=== PATIENT | female | born 1960 | race Caucasian/White ===

== ENCOUNTER 2020-07-04 10:00 | Inpatient (IN) | payer OTHER ==
[~2020-07-04] VITALS: Ht 172.7 cm; Wt 123.4 kg
[~2020-07-04 10:00] MED LIST: PROTONIX40 MG PO
--- NOTE | 2020-07-04 10:26 | NUR ---
RECEIVED VIA WHEELCHAIR TO ROOM WITH MASK ON. DRY COUGH. PLACED IN COVID ISOLATION. GLASSES ON AT BEDISDE. WILL ADMIT AND CALL FOR ORDERS.
[2020-07-04] MEDS ORDERED: PLAVIX75 MG PO (10:39)
[2020-07-04] MEDS ORDERED: LIPITOR40 MG PO (10:40)
[2020-07-04] MEDS ORDERED: BAYER CHEWABLE81 MG PO (10:40)
[2020-07-04 10:50] VITALS: BP 151/80; BMI 41.4
--- NOTE | 2020-07-04 11:21 | NUR ---
IV X 3 STICKS TO LEFT HAND WITH 20 G PER TANMAY ONOFRE RN.
--- NOTE | 2020-07-04 11:35 | NUR ---
PATIENT TO PLACE HERSELF ON 2 LITER NC, O2 SAT IS 96%. STATES TO HAVING SLIGHT HEADACHE. STILL AWAITING FURTHER ADMIT ORDERS.
--- NOTE | 2020-07-04 15:55 | NUR ---
ASSUMED CARE OF PT. TYLENOL GIVEN FOR GENERAL ACHES AND PAINS. ANTIBIOTICS INITIATED. URINE AND BLOOD COLLECTED.
[2020-07-04 15:58] LABS: BASOPHILS 0.1 % (0-2); EOSINOPHILS 0 % (0-7); HEMATOCRIT 41.6 % (36.0-48.0); HEMOGLOBIN 13.4 g/dL (12-16); IMMATURE GRANULOCYTES 0.1 % (0-5); LYMPHOCYTES 16.5 % (15-50); MCH 27.8 pg (26.0-34.0); MCHC 32.2 g/dL (31.0-37.0); MCV 86.3 fL (80.0-100.0); MEAN PLATELET VOLUME 10.4 fL (7.4-10.4); MONOCYTES 8.5 % (2-11); NEUTROPHILS 74.8 % (40-80); PLATELET COUNT 215 10x3/uL (130-400); RBC 4.82 10x6/uL (4.00-5.40); RDW 14.1 % (11.5-14.5); WBC 6.7 10x3/uL (4.8-10.8)
[2020-07-04 16:40] LABS: ALBUMIN 3.6 g/dL (3.4-5.0); ANION GAP 16.2 mmol/L (8-16); BILIRUBIN - TOTAL 0.26 mg/dL (0.2-1.3); C-REACTIVE PROTEIN 0.8 mg/dL (0.0-0.9); CALCIUM 8.3 mg/dL (8.5-10.1); CARBON DIOXIDE 21.4 mmol/L (21.0-32.0); CREATININE - SERUM 1.1 mg/dL (0.6-1.3); POTASSIUM - SERUM 3.6 mmol/L (3.5-5.1); PROTEIN - SERUM 7.1 g/dL (6.4-8.2)
[2020-07-04 18:02] LABS: ERYTHROCYTE SEDIMENTATION RATE 15 mm/hr (0-30)
[2020-07-04 18:10] LABS: BILIRUBIN NEGATIVE (NEGATIVE); KETONE NEGATIVE (NEGATIVE); NITRITE NEGATIVE (NEGATIVE); UROBILINOGEN NORMAL mg/dL (< 2)
--- NOTE | 2020-07-04 19:30 | NUR ---
PT IN BED, AAO X 3, RESP EVEN AND UNLABORED, NO DISTRESS NOTED, PT C/O FEELING HOT AFTER ANTIBIOTIC GIVEN, CL IN REACH, SR UP X 2.
[2020-07-04 20:00] VITALS: BP 142/75
[2020-07-05] VITALS: BP 124/49
--- NOTE | 2020-07-05 03:08 | NUR ---
I have reviewed this patient and I concur with the Shift Assessment completed by the Licensed Practical Nurse today this shift.
[2020-07-05 04:00] VITALS: BP 120/58
[2020-07-05 04:53] LABS: BASOPHILS 0.2 % (0-2); EOSINOPHILS 0 % (0-7); HEMATOCRIT 40.7 % (36.0-48.0); HEMOGLOBIN 13.1 g/dL (12-16); IMMATURE GRANULOCYTES 0.2 % (0-5); MCH 28.1 pg (26.0-34.0); MCHC 32.2 g/dL (31.0-37.0); MCV 87.2 fL (80.0-100.0); MEAN PLATELET VOLUME 10.6 fL (7.4-10.4); MONOCYTES 7.7 % (2-11); NEUTROPHILS 80.9 % (40-80); PLATELET COUNT 194 10x3/uL (130-400); RBC 4.67 10x6/uL (4.00-5.40); RDW 14.6 % (11.5-14.5); WBC 6.1 10x3/uL (4.8-10.8)
[2020-07-05 05:19] LABS: ALBUMIN 3.4 g/dL (3.4-5.0); ANION GAP 13.3 mmol/L (8-16); BILIRUBIN - TOTAL 0.25 mg/dL (0.2-1.3); CALCIUM 8.4 mg/dL (8.5-10.1); CARBON DIOXIDE 25.4 mmol/L (21.0-32.0); CREATININE - SERUM 1.1 mg/dL (0.6-1.3); POTASSIUM - SERUM 3.7 mmol/L (3.5-5.1); PROTEIN - SERUM 7.2 g/dL (6.4-8.2)
[2020-07-05 08:00] VITALS: BP 149/60
[2020-07-05 08:10] VITALS: BP 149/60
[2020-07-05 13:03] VITALS: Ht 172.7 cm; Wt 123.4 kg
--- NOTE | 2020-07-05 13:17 | NUR ---
COVID CONVALESCENT PLASMA STARTED.
--- NOTE | 2020-07-05 16:10 | MORECARE ---
CASE MANAGEMENT DISCHARGE SUMMARY PATIENT: LEVON FELICIANO UNIT: [id number] ADM DATE: 07/04/20 AGE: 60 : 60 SEX: F ROOM/BED: D.9854 AUTHOR: CRISSY MONROY PHYSICIAN: REFERRING PHYSICIAN: LUDA BUENO DO DATE OF SERVICE: 07/05/20 Discharge Plan Patient Name: LEVON FELICIANO Facility: [facility]:[place] : 1960 Planned Disposition: Home Anticipated Discharge Date: Discharge Date: Expected LOS: Initial Reviewer: [email or web address] Initial Review Date: 07/04/2020 Generated: 07/05/20 5:09 pm Patient Name: LEVON FELICIANO Page [id number] at 1610 All edits/amendments must be made on the electronic document DICTATION DATE: 07/05/201608 MARINE CHRONOMETER ASSEMBLER: JANE 07/05/201608 RPT#: [id number] DC DATE: STATUS: ADM IN [facility] [address] [place] [address] END OF REPORT
--- NOTE | 2020-07-05 16:33 | MORECARE ---
CASE MANAGEMENT DISCHARGE SUMMARY PATIENT: LEVON FELICIANO UNIT: [id number] ADM DATE: 07/04/20 AGE: 60 : 60 SEX: F ROOM/BED: D.7841 AUTHOR: PORFIRIODOC PHYSICIAN: REFERRING PHYSICIAN: LUDA BUENO DO DATE OF SERVICE: 07/05/20 Discharge Plan Patient Name: LEVON FELICIANO Facility: [facility]:[place] : 1960 Planned Disposition: Home Anticipated Discharge Date: Discharge Date: Expected LOS: Initial Reviewer: [email or web address] Initial Review Date: 07/04/2020 Generated: 07/05/20 5:32 pm DCP- Discharge Planning Updated by [email or web address]: Domenica Mason on 07/05/20 3:[address] Patient Name: LEVON FELICIANO Admission Status: Elective Accout number: [id number] Admission Date: 07-04-2020 : 1960 Admission Diagnosis:COVID-19 Attending: LUDA BUENO Current LOS: 1 Anticipated DC Date: Planned Disposition: Home Primary Insurance: [employer] POS Discharge Planning Comments: CM met with patient to complete initial dc planning assessment. CM educated patient on the CM role and verbal consent given by patient to complete assessment. CM verified patient's address, phone number, and emergency contact phone numbers. Patient lives at home with her . At discharge patient plans to return home and feels this is a safe discharge. CM discussed availability of home health, rehab services, and medical equipment. Patient denied known discharge needs at this time. The patient is on oxygen and may require a walk test for home and portable oxygen. RAJENDRA verbalized for [facility] if home oxygen is needed. Transportation provider at discharge will be her . CM will continue to follow and will assist as needed with dc plans/needs. Accounting Advisory Services Manager: Domenica Mason DCPIA - Discharge Planning Initial Assessment Updated by [email or web address]: Domenica Mason on 07/05/20 4:26 pm * Is the patient Alert and Oriented? Yes * How many steps to enter\exit or inside your home? 0/0 * PCP XIMENA * Pharmacy [facility] * Preadmission Environment Home with Family * ADLs Independent * Equipment None * Verbal permission to speak to the caregivers and representatives has been obtained from the patient. N/A * Community resources currently utilized None * Additional services required to return to the preadmission environment? Yes * Can the patient safely return to the preadmission environment? Yes * Has this patient been hospitalized within the prior 30 days at any hospital? No Coverage Notice Reviewer: [id number] Alexandria Mason Notice Issued Date-Time: 07/05/2020 13:00 Notice Type: Patient Choice Letter Notice Delivered To: Patient Relationship to Patient: Self Dining Room Attendant Cafeteria Name: Delivery Method: PHONE - Phone Nicole Days: Prior Verbal Notification: Yes Recipient Understood Notice: Yes Recipient Signature: Med Rec Note Co-signed by Attending: Coverage Notice Comment: rajendra verbalized for judith DUNN export: 07/05/20 3:10 p Patient Name: LEVON FELICIANO Page [phone] at 1633 All edits/amendments must be made on the electronic document DICTATION DATE: 07/05/20 163 FIELD SERVICE MANAGER: JANE 07/05/20 163 RPT#: [id number] DC DATE: STATUS: ADM IN [facility] [address] [place] [address] END OF REPORT
--- NOTE | 2020-07-05 19:30 | NUR ---
PT IN BED, AAO X 3, RESP EVEN AND UNLABOERD, NO DISTRESS NOTED, CL IN REACH, SR UP X 2.
[2020-07-05 20:00] VITALS: BP 118/52
[2020-07-06] VITALS: BP 130/60
[2020-07-06 04:00] VITALS: BP 113/60
[2020-07-06 04:24] LABS: BASOPHILS 0.3 % (0-2); EOSINOPHILS 0 % (0-7); HEMATOCRIT 38.8 % (36.0-48.0); HEMOGLOBIN 12.4 g/dL (12-16); IMMATURE GRANULOCYTES 0.3 % (0-5); LYMPHOCYTES 18.1 % (15-50); MCH 27.9 pg (26.0-34.0); MCV 87.2 fL (80.0-100.0); MEAN PLATELET VOLUME 10.7 fL (7.4-10.4); NEUTROPHILS 67.3 % (40-80); PLATELET COUNT 188 10x3/uL (130-400); RBC 4.45 10x6/uL (4.00-5.40); RDW 14.4 % (11.5-14.5)
[2020-07-06 04:33] LABS: WBC 3.9 10x3/uL (4.8-10.8)
[2020-07-06 04:52] LABS: ALBUMIN 3.1 g/dL (3.4-5.0); ANION GAP 10.9 mmol/L (8-16); BILIRUBIN - TOTAL 0.3 mg/dL (0.2-1.3); CALCIUM 8.4 mg/dL (8.5-10.1); CREATININE - SERUM 0.9 mg/dL (0.6-1.3); POTASSIUM - SERUM 3.9 mmol/L (3.5-5.1); PROTEIN - SERUM 6.8 g/dL (6.4-8.2)
--- NOTE | 2020-07-06 07:37 | NUR ---
PT RECEIVED AWAKE AND ALERT IN BED. ASKING FOR TESSELON STEPHANE. OXYGEN UP TO 5 LITERS.
[2020-07-06 08:52] VITALS: BP 121/58
--- NOTE | 2020-07-06 19:30 | NUR ---
PT SETTING UP IN BED, AAO X 3, RESP EVEN AND UNLABORED, NO DISTRESS NOTED, CL IN REACH, SR UP X 2.
[2020-07-06 21:19] VITALS: BP 133/67
--- NOTE | 2020-07-07 03:14 | NUR ---
I have reviewed this patient and I concur with the Shift Assessment completed by the Licensed Practical Nurse today this shift.
[2020-07-07 05:30] LABS: BASOPHILS 0.1 % (0-2); EOSINOPHILS 0.1 % (0-7); HEMATOCRIT 40.2 % (36.0-48.0); HEMOGLOBIN 12.8 g/dL (12-16); IMMATURE GRANULOCYTES 0.4 % (0-5); MCH 27.9 pg (26.0-34.0); MCHC 31.8 g/dL (31.0-37.0); MCV 87.6 fL (80.0-100.0); MEAN PLATELET VOLUME 10.3 fL (7.4-10.4); MONOCYTES 14.2 % (2-11); NEUTROPHILS 70.2 % (40-80); PLATELET COUNT 196 10x3/uL (130-400); RBC 4.59 10x6/uL (4.00-5.40); RDW 14.5 % (11.5-14.5)
[2020-07-07 05:38] VITALS: BP 164/76
[2020-07-07 05:39] LABS: WBC 7.1 10x3/uL (4.8-10.8)
[2020-07-07 05:46] LABS: ANION GAP 8.8 mmol/L (8-16); BILIRUBIN - TOTAL 0.26 mg/dL (0.2-1.3); CALCIUM 8.3 mg/dL (8.5-10.1); CREATININE - SERUM 0.9 mg/dL (0.6-1.3); POTASSIUM - SERUM 3.8 mmol/L (3.5-5.1); PROTEIN - SERUM 6.8 g/dL (6.4-8.2)
--- NOTE | 2020-07-07 07:00 | NUR ---
RECEIVED REPORT. ASSUMED CARE OF PATIENT. PATIENT REMAINS IN DROPLET ISOLATION FOR COVID19.
[2020-07-07 08:08] VITALS: BP 143/70
--- NOTE | 2020-07-07 09:45 | NUR ---
MEDICATED FOR GENERALIZED PAIN AT THIS TIME. NO DISTRESS.
[2020-07-07 11:15] VITALS: BP 122/46
[2020-07-07 15:56] VITALS: BP 143/74
--- NOTE | 2020-07-07 18:10 | NUR ---
CRISS FELICIANO, PATIENTS SON, CALLED TO CHECK ON PATIENT AND UPDATE WAS GIVEN DUE TO HE WAS ABLE TO PROVIDE SECURITY CODE FOR PATIENT.
--- NOTE | 2020-07-07 18:27 | NUR ---
DR. BRAVO EXPRESSES CONCERN AND WANTS HOURLY CHECK INS WITH PT D/T LETHARGY AND UPPED O2 USE.
[2020-07-07 20:18] VITALS: BP 106/52
--- NOTE | 2020-07-08 04:40 | NUR ---
PT REMAINS ON 8L HF. O2 SATS AT 92-94% NO S/S OF DISTRESS OBSERVED. FREQUENT ROUNDS. NO C/O OR CONCERNS. WILL CPOC.
[2020-07-08 04:45] VITALS: BP 141/72
[2020-07-08 06:52] LABS: BASOPHILS 0 % (0-2); EOSINOPHILS 0 % (0-7); HEMATOCRIT 39.7 % (36.0-48.0); HEMOGLOBIN 12.6 g/dL (12-16); IMMATURE GRANULOCYTES 0.5 % (0-5); MCHC 31.7 g/dL (31.0-37.0); MCV 88.2 fL (80.0-100.0); MEAN PLATELET VOLUME 10.5 fL (7.4-10.4); MONOCYTES 10.4 % (2-11); NEUTROPHILS 73.1 % (40-80); PLATELET COUNT 202 10x3/uL (130-400); RDW 14.6 % (11.5-14.5); WBC 6.3 10x3/uL (4.8-10.8)
--- NOTE | 2020-07-08 07:20 | NUR ---
RECIEVE REPORT. ALERT AND ORIENTED X4. ABGs IMPROVED. VITALS STABLE. DENIES ANY NEEDS. CONTINUE PLAN OF CARE AND SAFETY PRECAUTIONS.
[2020-07-08 07:27] LABS: ALBUMIN 2.9 g/dL (3.4-5.0); ANION GAP 11.8 mmol/L (8-16); BILIRUBIN - TOTAL 0.33 mg/dL (0.2-1.3); CALCIUM 8.5 mg/dL (8.5-10.1); CREATININE - SERUM 0.9 mg/dL (0.6-1.3); POTASSIUM - SERUM 3.8 mmol/L (3.5-5.1); PROTEIN - SERUM 6.6 g/dL (6.4-8.2)
[2020-07-08 09:06] VITALS: BP 136/72
[2020-07-08 12:07] VITALS: BP 124/54
--- NOTE | 2020-07-08 16:37 | NUR ---
ALERT AND ORIENTED X4. SITTING UP IN BED WATCHING TV. DENIES ANY NEEDS. NO BIPAP REQUIRED AT THIS TIME. O2 @ 8L HFNC O2 SAT 95%. CONTINUE PLAN OF CARE AND SAFETY PRECAUTIONS.
[2020-07-08 17:10] VITALS: BP 120/63
[2020-07-08 21:30] VITALS: BP 124/57
[2020-07-09 01:30] VITALS: BP 148/56
[2020-07-09 04:35] VITALS: BP 186/90
--- NOTE | 2020-07-09 05:52 | NUR ---
PT VOICES NO C/O OR CONCERNS DURING THE NIGHT, SPO2 STAYED ABOVE 95% DURING THE NIGHT. PT DID ASK MULTIPLE TIMES REGARDING HER XANAX ORDER, EDUCATED ITS Q12H PRN. NO DISTRESS. WILL CPOC.
--- NOTE | 2020-07-09 07:20 | NUR ---
RECIEVE REPORT. ALERT AND ORIENTED X4. SITTING UP IN BED. O2 @ 8L HFNC SAT-97%. DENIES ANY NEEDS. CONTINUE PLAN OF CARE AND SAFETY PRECAUTIONS.
[2020-07-09 08:06] VITALS: BP 157/74
[2020-07-09 11:49] VITALS: BP 145/74
[2020-07-09 13:13] LABS: BASOPHILS 0 % (0-2); EOSINOPHILS 0 % (0-7); HEMOGLOBIN 12.4 g/dL (12-16); IMMATURE GRANULOCYTES 0.8 % (0-5); LYMPHOCYTES 7.9 % (15-50); MCH 28.1 pg (26.0-34.0); MCHC 31.8 g/dL (31.0-37.0); MCV 88.2 fL (80.0-100.0); MEAN PLATELET VOLUME 10.3 fL (7.4-10.4); MONOCYTES 9.4 % (2-11); NEUTROPHILS 81.9 % (40-80); PLATELET COUNT 203 10x3/uL (130-400); RBC 4.42 10x6/uL (4.00-5.40); RDW 14.4 % (11.5-14.5); WBC 8.9 10x3/uL (4.8-10.8)
[2020-07-09 13:20] LABS: ALBUMIN 2.9 g/dL (3.4-5.0); ALKALINE PHOSPHATASE 69 U/L (30-120); ALT (SGPT) 30 U/L (10-68); BILIRUBIN - TOTAL 0.32 mg/dL (0.2-1.3); CALCIUM 8.2 mg/dL (8.5-10.1); CARBON DIOXIDE 26.9 mmol/L (21.0-32.0); CHLORIDE - SERUM 105 mmol/L (98-107); CREATININE - SERUM 0.8 mg/dL (0.6-1.3); POTASSIUM - SERUM 4.2 mmol/L (3.5-5.1); PROTEIN - SERUM 5.8 g/dL (6.4-8.2); SODIUM 138 mmol/L (136-145); UREA NITROGEN 19 mg/dL (7-18); eGFR NON AFRICAN AMERICAN 77 mL/min (90-120)
[2020-07-09 13:21] LABS: CALC OSMOLALITY 283 mosm/kg (275-300); GLUCOSE 205 mg/dL (74-106)
--- NOTE | 2020-07-09 14:01 | NUR ---
Nutrition Follow-up: Diet: Cardiac PO intake: 15-20% x last 3 meals Last BM: 07/06/20. Wt: 272# (07/05/20) Meds noted: vit d, vit c, pepcid, zinc sulfate. Labs reviewed. Recommend continue current diet. Will add Ensure TID with meals. RD following.
[2020-07-09 15:32] VITALS: BP 148/67
--- NOTE | 2020-07-09 16:26 | NUR ---
ALERT AND ORIENTED X4. SITTING UP IN BED USING INSENTIVE SPIROMETER. O2 @ 7L HFNC SAT-96%. REPORTS NOSE DRY AND SCANT BLEEDING. OXYGEN HUMIDIFIED. DENIES ANY OTHER NEEDS. CONTINUE PLAN OF CARE AND SAFETY PRECAUTIONS.
--- NOTE | 2020-07-09 19:00 | NUR ---
REPORT RECEIVED, WILL CONTINUE POC. PATIENT IS AAOX4, LYING IN BED. NO S/S OF DISTRESS OBSERVED, RR EVEN AND UNLABORED ON 7L HFNC. PIV TO RT FA, SL. PATIENT DENIES NEEDS AT THIS TIME. CL IN REACH, BED LOCKED AND LOWERED. COVID 19 PRECAUTIONS MAINTAINED. WILL CTM.
--- NOTE | 2020-07-09 19:50 | NUR ---
PATIENT CALLED DESK TO ASK IF WE GAVE HER ANYTHING WHILE SHE WAS ASLEEP. INFORMED PATIENT THAT MEDS WILL NOT BE ADMINISTERED UNLESS PATIENT IS ALERT AND AWARE OF THE MEDICATIONS BEING GIVEN. PATIENT STATE'S, "I'M ON FIRE". INFORMED PATIENT THAT THIS NURSE WOULD BRING IN ALL OF HER MEDS IN JUST A FEW MINUTES. PATIENT STATES UNDERSTANDING.
[2020-07-09 21:35] VITALS: BP 167/82
[2020-07-10 03:19] VITALS: BP 149/63
[2020-07-10 05:53] LABS: BASOPHILS 0 % (0-2); EOSINOPHILS 0 % (0-7); HEMOGLOBIN 13.5 g/dL (12-16); IMMATURE GRANULOCYTES 1.3 % (0-5); LYMPHOCYTES 11.6 % (15-50); MCH 27.9 pg (26.0-34.0); MCHC 32.1 g/dL (31.0-37.0); MCV 86.8 fL (80.0-100.0); MEAN PLATELET VOLUME 10.4 fL (7.4-10.4); MONOCYTES 8.6 % (2-11); NEUTROPHILS 78.5 % (40-80); PLATELET COUNT 223 10x3/uL (130-400); RBC 4.84 10x6/uL (4.00-5.40); RDW 13.8 % (11.5-14.5); WBC 7.8 10x3/uL (4.8-10.8)
[2020-07-10 06:23] LABS: ALBUMIN 2.9 g/dL (3.4-5.0); ALKALINE PHOSPHATASE 70 U/L (30-120); ALT (SGPT) 27 U/L (10-68); BILIRUBIN - TOTAL 0.38 mg/dL (0.2-1.3); CALCIUM 8.4 mg/dL (8.5-10.1); CARBON DIOXIDE 28.6 mmol/L (21.0-32.0); CHLORIDE - SERUM 104 mmol/L (98-107); CREATININE - SERUM 0.8 mg/dL (0.6-1.3); POTASSIUM - SERUM 4.2 mmol/L (3.5-5.1); PROTEIN - SERUM 6.7 g/dL (6.4-8.2); SODIUM 139 mmol/L (136-145); eGFR NON AFRICAN AMERICAN 77 mL/min (90-120)
[2020-07-10 06:24] LABS: CALC OSMOLALITY 280 mosm/kg (275-300); GLUCOSE 138 mg/dL (74-106); UREA NITROGEN 14 mg/dL (7-18)
--- NOTE | 2020-07-10 07:20 | NUR ---
RECIEVE REPORT. ALERT AND ORIENTED X4. SITTING UP IN BED. O2 @ 7L HF SAT-97%. HR-50. INITIATE CRIMINAL JUSTICE FACULTY DUE TO DECREASE HR. SINUS PETER ON TELEMETRY. DENIES ANY NEEDS AT THIS TIME. CONTINUE PLAN OF CARE AND SAFETY PRECAUTIONS.
[2020-07-10 08:05] VITALS: BP 155/80
[2020-07-10 11:02] VITALS: BP 131/64
--- NOTE | 2020-07-10 14:53 | NUR ---
ALERT AND ORIENTED X4. SITTING UP IN BED. REFUSE BED CHANGE AND SPONGE BATH. O2 @ 5.5L HF O2 SAT 95%. SINUS RYTHM 70 ON TELEMETRY. DENIES ANY OTHER NEEDS. CONTINUE PLAN OF CARE AND SAFETY PRECAUTIONS.
[2020-07-10 16:03] VITALS: BP 144/59
[2020-07-10 20:00] VITALS: BP 144/51
[2020-07-11] VITALS: BP 145/51
[2020-07-11 04:00] VITALS: BP 165/68
--- NOTE | 2020-07-11 05:21 | NUR ---
PT A/O X4 SITTING UP IN BED O2-98% VITALS STABLE. PT DENIES ANY PAIN OR FURTHER NEEDS AT THIS TIME. BED LOW CALL LIGHT WITHIN REACH. WILL CONTINUE TO MONITOR.
[2020-07-11 05:42] LABS: BASOPHILS 0 % (0-2); EOSINOPHILS 0 % (0-7); HEMATOCRIT 42.2 % (36.0-48.0); HEMOGLOBIN 13.5 g/dL (12-16); LYMPHOCYTES 9.6 % (15-50); MCH 27.5 pg (26.0-34.0); MCV 85.9 fL (80.0-100.0); MEAN PLATELET VOLUME 10.7 fL (7.4-10.4); MONOCYTES 12.9 % (2-11); NEUTROPHILS 75.5 % (40-80); PLATELET COUNT 254 10x3/uL (130-400); RBC 4.91 10x6/uL (4.00-5.40); RDW 13.5 % (11.5-14.5); WBC 9.2 10x3/uL (4.8-10.8)
[2020-07-11 06:08] LABS: ALBUMIN 2.9 g/dL (3.4-5.0); ALKALINE PHOSPHATASE 69 U/L (30-120); ALT (SGPT) 30 U/L (10-68); BILIRUBIN - TOTAL 0.41 mg/dL (0.2-1.3); CALC OSMOLALITY 275 mosm/kg (275-300); CALCIUM 8.4 mg/dL (8.5-10.1); CARBON DIOXIDE 27.8 mmol/L (21.0-32.0); CHLORIDE - SERUM 103 mmol/L (98-107); CREATININE - SERUM 0.8 mg/dL (0.6-1.3); GLUCOSE 113 mg/dL (74-106); POTASSIUM - SERUM 4.2 mmol/L (3.5-5.1); PROTEIN - SERUM 6.7 g/dL (6.4-8.2); SODIUM 137 mmol/L (136-145); UREA NITROGEN 16 mg/dL (7-18); eGFR NON AFRICAN AMERICAN 77 mL/min (90-120)
[2020-07-11 12:57] VITALS: BP 148/83
[2020-07-11 20:00] VITALS: BP 143/72
--- NOTE | 2020-07-11 20:45 | NUR ---
PT SITTING UP IN CHAIR.PT IS ALERT AND ORIENTED.C/O HEADACHE.RATES PAIN A 4 ON PAIN SCALE.02 IN USE.RESP ARE EVEN ET UNLABORED.HEARTRATE IS REGULAR.IV WITHOUT S/S OF INFILTRATION.PT WITH GOOD APPETITE.CALLBELL IN REACH.SIDERAILS UP X2.NO DISTRESS NOTED.
[2020-07-12 04:00] VITALS: BP 178/70
[2020-07-12 07:45] LABS: BASOPHILS 0.1 % (0-2); EOSINOPHILS 0.1 % (0-7); HEMATOCRIT 42.2 % (36.0-48.0); HEMOGLOBIN 13.9 g/dL (12-16); IMMATURE GRANULOCYTES 2.8 % (0-5); MCH 28.2 pg (26.0-34.0); MCHC 32.9 g/dL (31.0-37.0); MCV 85.6 fL (80.0-100.0); MEAN PLATELET VOLUME 10.9 fL (7.4-10.4); MONOCYTES 11.1 % (2-11); NEUTROPHILS 72.9 % (40-80); PLATELET COUNT 247 10x3/uL (130-400); RBC 4.93 10x6/uL (4.00-5.40); RDW 13.5 % (11.5-14.5); WBC 10.9 10x3/uL (4.8-10.8)
[2020-07-12 07:57] LABS: ALBUMIN 2.9 g/dL (3.4-5.0); ALKALINE PHOSPHATASE 65 U/L (30-120); ALT (SGPT) 28 U/L (10-68); BILIRUBIN - TOTAL 0.47 mg/dL (0.2-1.3); CALC OSMOLALITY 275 mosm/kg (275-300); CALCIUM 8.4 mg/dL (8.5-10.1); CARBON DIOXIDE 27.3 mmol/L (21.0-32.0); CHLORIDE - SERUM 104 mmol/L (98-107); CREATININE - SERUM 0.8 mg/dL (0.6-1.3); GLUCOSE 88 mg/dL (74-106); POTASSIUM - SERUM 4.1 mmol/L (3.5-5.1); PROTEIN - SERUM 6.5 g/dL (6.4-8.2); SODIUM 137 mmol/L (136-145); UREA NITROGEN 20 mg/dL (7-18); eGFR NON AFRICAN AMERICAN 77 mL/min (90-120)
[2020-07-12 07:58] VITALS: BP 121/74
[2020-07-12 12:22] VITALS: BP 122/72
--- NOTE | 2020-07-12 14:17 | NUR ---
Nutrition Follow-up: Pt in droplet isolation; covid-19+. Nursing reports good appetite. Noted possible d/c tomorrow. Diet: Cardiac, Ensure TID Wt: 272# (07/05) Labs noted: Ca 8.4, Alb 2.9 Meds noted: Pepcid, zinc sulfate, vit D, vit C, electrolyte protocol -Change Ensure to PRN. -RD following.
[2020-07-12 16:04] VITALS: BP 139/70
--- NOTE | 2020-07-12 19:02 | MORECARE ---
CASE MANAGEMENT DISCHARGE SUMMARY PATIENT: LEVON FELICIANO UNIT: [id number] ADM DATE: 07/04/20 AGE: 60 : 60 SEX: F ROOM/BED: D.7530 AUTHOR: PORFIRIODOC PHYSICIAN: REFERRING PHYSICIAN: LUDA BUENO DO DATE OF SERVICE: 07/12/20 Discharge Plan Patient Name: LEVON FELICIANO Facility: [facility]:[place] : 1960 Planned Disposition: Home Anticipated Discharge Date: Discharge Date: Expected LOS: Initial Reviewer: [email or web address] Initial Review Date: 07/04/2020 Generated: 07/12/20 8:01 pm DCP- Discharge Planning Updated by [email or web address]: Domenica Mason on 07/05/20 3:[address] Patient Name: LEVON FELICIANO Admission Status: Elective Accout number: [id number] Admission Date: 07-04-2020 : 1960 Admission Diagnosis:COVID-19 Attending: LUDA BUENO Current LOS: 1 Anticipated DC Date: Planned Disposition: Home Primary Insurance: [employer] POS Discharge Planning Comments: CM met with patient to complete initial dc planning assessment. CM educated patient on the CM role and verbal consent given by patient to complete assessment. CM verified patient's address, phone number, and emergency contact phone numbers. Patient lives at home with her . At discharge patient plans to return home and feels this is a safe discharge. CM discussed availability of home health, rehab services, and medical equipment. Patient denied known discharge needs at this time. The patient is on oxygen and may require a walk test for home and portable oxygen. RAJENDRA verbalized for [facility] if home oxygen is needed. Transportation provider at discharge will be her . CM will continue to follow and will assist as needed with dc plans/needs. Cabin Agent: Domenica Mason DCPIA - Discharge Planning Initial Assessment Updated by [email or web address]: Domenica Mason on 07/05/20 4:26 pm * Is the patient Alert and Oriented? Yes * How many steps to enter\exit or inside your home? 0/0 * PCP XIMENA * Pharmacy [facility] * Preadmission Environment Home with Family * ADLs Independent * Equipment None * Verbal permission to speak to the caregivers and representatives has been obtained from the patient. N/A * Community resources currently utilized None * Additional services required to return to the preadmission environment? Yes * Can the patient safely return to the preadmission environment? Yes * Has this patient been hospitalized within the prior 30 days at any hospital? No External Providers External Provider: Timothy Next Contact Date: Service Request Date: Service Type: Resolution: Reviewer: Comments: Coverage Notice Reviewer: [email or web address] Alexandria Mason Notice Issued Date-Time: 07/05/2020 13:00 Notice Type: Patient Choice Letter Notice Delivered To: Patient Relationship to Patient: Self Proposal Development Manager Name: Delivery Method: PHONE - Phone Nicole Days: Prior Verbal Notification: Yes Recipient Understood Notice: Yes Recipient Signature: Med Rec Note Co-signed by Attending: Coverage Notice Comment: rajendra verbalized for judith Last DP export: 07/05/20 3:33 p Patient Name: LEVON FELICIANO Page [id number] at 1902 All edits/amendments must be made on the electronic document DICTATION DATE: 07/12/201901 IRONER: JANE 07/12/201901 RPT#: [id number] DC DATE: STATUS: ADM IN [facility] [address] [place] [address] END OF REPORT
--- NOTE | 2020-07-12 19:30 | NUR ---
pt laying in bed alert and oriented.pt has 02 in use. resp are even et unlabored.heartrate is regular.pt with a c/o pain to head. rates pain as a 5 on pain scale.pt has iv to right forearm without s/s of infiltration.pt with good appetite.callbell in reach.siderails upx2.no distress noted.
[2020-07-12 20:00] VITALS: BP 118/52
--- NOTE | 2020-07-12 20:30 | NUR ---
PT GIVEN PM MEDS.PT GIVEN TYLENOL AND XANAX REQUESTED.CALLBELL IN REACH. SIDERAILS UP X2.NO DISTRESS NOTED.
--- NOTE | 2020-07-13 01:24 | NUR ---
PT LAYING IN BED RESTING QUIETLY WITH EYES CLOSED.RESP ARE UNLABORED. CALLBELL IN REACH. SIDERAILS UP X2.NO DISTRESS NOTED.
[2020-07-13 04:00] VITALS: BP 117/58
--- NOTE | 2020-07-13 05:00 | NUR ---
PT STUCK IN LEFT HAND WITH A 23 GAUGE BUTTERFLY TO OBTAIN BLOOD FOR LAB.PT WITH NO COMPLAINTS.CALLBELL IN REACH. SIDERAILS UP X2.NO DISTRESS NOTED.
[2020-07-13 05:15] LABS: BASOPHILS 0.1 % (0-2); EOSINOPHILS 0.1 % (0-7); HEMATOCRIT 42.6 % (36.0-48.0); HEMOGLOBIN 13.7 g/dL (12-16); IMMATURE GRANULOCYTES 2.1 % (0-5); LYMPHOCYTES 9.7 % (15-50); MCH 27.5 pg (26.0-34.0); MCHC 32.2 g/dL (31.0-37.0); MCV 85.5 fL (80.0-100.0); MEAN PLATELET VOLUME 10.6 fL (7.4-10.4); PLATELET COUNT 265 10x3/uL (130-400); RBC 4.98 10x6/uL (4.00-5.40); RDW 13.6 % (11.5-14.5); WBC 11.3 10x3/uL (4.8-10.8)
[2020-07-13 05:34] LABS: ALBUMIN 2.8 g/dL (3.4-5.0); ALKALINE PHOSPHATASE 66 U/L (30-120); ALT (SGPT) 31 U/L (10-68); BILIRUBIN - TOTAL 0.43 mg/dL (0.2-1.3); CALC OSMOLALITY 277 mosm/kg (275-300); CALCIUM 8.3 mg/dL (8.5-10.1); CARBON DIOXIDE 25.9 mmol/L (21.0-32.0); CHLORIDE - SERUM 105 mmol/L (98-107); CREATININE - SERUM 0.8 mg/dL (0.6-1.3); POTASSIUM - SERUM 3.9 mmol/L (3.5-5.1); PROTEIN - SERUM 6.4 g/dL (6.4-8.2); SODIUM 136 mmol/L (136-145); UREA NITROGEN 18 mg/dL (7-18); eGFR NON AFRICAN AMERICAN 77 mL/min (90-120)
[2020-07-13 05:37] LABS: GLUCOSE 173 mg/dL (74-106)
[2020-07-13] MEDS ORDERED: VENTOLIN HFA [SP8 GM INH (09:53)
--- NOTE | 2020-07-13 10:50 | NUR ---
PER ROBB BOB APN, REC FLU VACCINE NOT INDICATED AT THIS TIME.
--- NOTE | 2020-07-13 11:43 | MORECARE ---
CASE MANAGEMENT DISCHARGE SUMMARY PATIENT: LEVON FELICIANO UNIT: [id number] ADM DATE: 07/04/20 AGE: 60 : 60 SEX: F ROOM/BED: D.2140 AUTHOR: CRISSY MONROY PHYSICIAN: REFERRING PHYSICIAN: LUDA BUENO DO DATE OF SERVICE: 07/13/20 Discharge Plan Patient Name: LEVON FELICIANO Facility: [facility]:[place] : 1960 Planned Disposition: Home Anticipated Discharge Date: Discharge Date: Expected LOS: Initial Reviewer: [email or web address] Initial Review Date: 07/04/2020 Generated: 07/13/20 12:42 pm Comments DCP- Discharge Planning Updated by [id number]: Domenica Mason on 07/13/20 10:[address] Cm spoke with patient about final dc plan. The patient will require home and portable oxygen at discharge. CM called Nik with [facility] at [phone] with oxygen referral. The patients will be her special client bus driver. Domenica Mason DCP- Discharge Planning Updated by [email or web address]: Domenica Mason on 07/05/20 3:[address] Patient Name: LEVON FELICIANO Admission Status: Elective Accout number: [id number] Admission Date: 07-04-2020 : 1960 Admission Diagnosis:COVID-19 Attending: LUDA BUENO Current LOS: 1 Anticipated DC Date: Planned Disposition: Home Primary [facility] [place] POS Discharge Planning Comments: CM met with patient to complete initial dc planning assessment. CM educated patient on the CM role and verbal consent given by patient to complete assessment. CM verified patient's address, phone number, and emergency contact phone numbers. Patient lives at home with her . At discharge patient plans to return home and feels this is a safe discharge. CM discussed availability of home health, rehab services, and medical equipment. Patient denied known discharge needs at this time. The patient is on oxygen and may require a walk test for home and portable oxygen. RAJENDRA verbalized for [facility] if home oxygen is needed. Transportation provider at discharge will be her . CM will continue to follow and will assist as needed with dc plans/needs. Airplane And Engine Inspector: Domenica Mason DCPIA - Discharge Planning Initial Assessment Updated by [email or web address]: Domenica Mason on 07/05/20 4:26 pm * Is the patient Alert and Oriented? Yes * How many steps to enter\exit or inside your home? 0/0 * PCP XIMENA * [facility] * Preadmission Environment Home with Family * ADLs Independent * Equipment None * Verbal permission to speak to the caregivers and representatives has been obtained from the patient. N/A * Community resources currently utilized None * Additional services required to return to the preadmission environment? Yes * Can the patient safely return to the preadmission environment? Yes * Has this patient been hospitalized within the prior 30 days at any hospital? No Coverage Notice Reviewer: [id number] - Domenica Mason Notice Issued Date-Time: 07/05/2020 13:00 Notice Type: Patient Choice Letter Notice Delivered To: Patient Relationship to Patient: Self Metal Numerical Control Programmer Name: Delivery Method: PHONE - Phone Nicole Days: Prior Verbal Notification: Yes Recipient Understood Notice: Yes Recipient Signature: Med Rec Note Co-signed by Attending: Coverage Notice Comment: rajendra verbalized for judith Jha DP export: 07/12/20 6:02 p Patient Name: LEVON FELICIANO Page [phone] at 1143 All edits/amendments must be made on the electronic document DICTATION DATE: 07/13/20 1142 CARETAKER: JANE 07/13/20 1142 RPT#: [id number] DC DATE: STATUS: ADM IN [facility] [address] [place] [address] END OF REPORT
--- NOTE | 2020-07-16 08:55 | MORECARE ---
CASE MANAGEMENT DISCHARGE SUMMARY PATIENT: LEVON FELICIANO UNIT: [id number] ADM DATE: 07/04/20 AGE: 60 : 60 SEX: F ROOM/BED: D.4051 AUTHOR: CRISSY MONROY PHYSICIAN: REFERRING PHYSICIAN: LUDA BUENO DO DATE OF SERVICE: 07/16/20 Discharge Plan Patient Name: LEVON FELICIANO Facility: [facility]:[place] : 1960 Planned Disposition: Home Anticipated Discharge Date: Discharge Date: 07/13/2020 Expected LOS: Initial Reviewer: [email or web address] Initial Review Date: 07/04/2020 Generated: 07/16/20 9:55 am Comments DCP- Discharge Planning Updated by [email or web address]: Domenica Mason on 07/13/20 10:[address] Cm spoke with patient about final dc plan. The patient will require home and portable oxygen at discharge. CM called Ink with [facility] at [phone] with oxygen referral. The patients will be her star route mail driver. Domenica Mason DCP- Discharge Planning Updated by [email or web address]: Domenica Mason on 07/05/20 3:[address] Patient Name: LEVON FELICIANO Admission Status: Elective Accout number: [id number] Admission Date: 07-04-2020 : 1960 Admission Diagnosis:COVID-19 Attending: LUDA BUENO Current LOS: 1 Anticipated DC Date: Planned Disposition: Home Primary Insurance[facility] Discharge Planning Comments: CM met with patient to complete initial dc planning assessment. CM educated patient on the CM role and verbal consent given by patient to complete assessment. CM verified patient's address, phone number, and emergency contact phone numbers. Patient lives at home with her . At discharge patient plans to return home and feels this is a safe discharge. CM discussed availability of home health, rehab services, and medical equipment. Patient denied known discharge needs at this time. The patient is on oxygen and may require a walk test for home and portable oxygen. RAJENDRA verbalized for [facility] if home oxygen is needed. Transportation provider at discharge will be her . CM will continue to follow and will assist as needed with dc plans/needs. Chemistry Associate: Domenica Mason DCPIA - Discharge Planning Initial Assessment Updated by [email or web address]: Domenica Mason on 07/05/20 4:26 pm * Is the patient Alert and Oriented? Yes * How many steps to enter\exit or inside your home? 0/0 * PCP XIMENA * [facility] * Preadmission Environment Home with Family * ADLs Independent * Equipment None * Verbal permission to speak to the caregivers and representatives has been obtained from the patient. N/A * Community resources currently utilized None * Additional services required to return to the preadmission environment? Yes * Can the patient safely return to the preadmission environment? Yes * Has this patient been hospitalized within the prior 30 days at any hospital? No Coverage Notice Reviewer: [email or web address] - Domenica Mason Notice Issued Date-Time: 07/05/2020 13:00 Notice Type: Patient Choice Letter Notice Delivered To: Patient Relationship to Patient: Self Technician Preventative Medicine Name: Delivery Method: PHONE - Phone Nicole Days: Prior Verbal Notification: Yes Recipient Understood Notice: Yes Recipient Signature: Med Rec Note Co-signed by Attending: Coverage Notice Comment: rajendra verbalized for judith Jha DP export: 07/13/20 10:43 a Patient Name: LEVON FELICIANO Page 69670 at 0855 All edits/amendments must be made on the electronic document DICTATION DATE: 07/16/20 0855 CENTREX RADIO OPERATOR: JANE 07/16/20 0855 RPT#: [id number] DC DATE:07/13/20 STATUS: DIS IN [facility] [address] [place] [address] END OF REPORT
== END 2020-07-13 12:30 | disposition home or self-care (01) | DRG 177 ==
LOC: D.M2 10:00
PROVIDERS: Family Medicine; ADMIT Family Medicine; ATTEND Family Medicine
PROC: XW033E5 Introduction of Remdesivir Anti-infective into Peripheral Vein, Percutaneous Approach, New Technology Group 5 (ICD-10-PCS; principal; 2020-07-04)
DX: U07.1 COVID-19 (principal); J12.89 Other viral pneumonia; J96.01 Acute respiratory failure with hypoxia; Z68.41 Body mass index [BMI] 40.0-44.9, adult; R73.03 Prediabetes; G25.0 Essential tremor; F41.1 Generalized anxiety disorder; I25.10 Atherosclerotic heart disease of native coronary artery without angina pectoris; E78.5 Hyperlipidemia, unspecified; I10 Essential (primary) hypertension; K21.9 Gastro-esophageal reflux disease without esophagitis; K76.9 Liver disease, unspecified; E66.01 Morbid (severe) obesity due to excess calories; G25.81 Restless legs syndrome; R00.1 Bradycardia, unspecified